=== PATIENT | male | born 1950 | race Caucasian/White ===

== ENCOUNTER 2018-09-06 13:54 | Emergency (ER) | payer MEDICARE, BC ==
[~2018-09-06] VITALS: Ht 172.7 cm; Wt 80.3 kg
[2018-09-06] MEDS ORDERED: ATENOLOL 50MG T50 M1 PO (14:12)
[2018-09-06] MEDS ORDERED: LASIX 20 MG TAB20 MG PO (14:13)
[2018-09-06 15:17] LABS: ABSOLUTE BASOPHILS 0.1 thou/uL (0.0-0.2); ABSOLUTE EOSINOPHILS 0.1 thou/uL (0.0-0.7); ABSOLUTE LYMPHOCYTES 2.1 thou/uL (0.8-5.3); ABSOLUTE MONOCYTES 0.9 thou/uL (0.0-1.2); ABSOLUTE NEUTROPHILS 7.1 thou/uL (1.6-8.1); BASOPHILS 0.7 %; HEMATOCRIT 47.2 % (42.0-52.0); HEMOGLOBIN 16.6 gm/dL (14.0-18.0); LYMPHOCYTES 20.2 %; MCHC 35.2 g/dL (28.0-37.0); MCV 90.9 fL (80.0-100.0); MONOCYTES 8.9 %; MPV 8.7 fl. (7.2-11.1); NUCLEATED RBCS 0 /100WBC; PLATELET COUNT* 182 thou/uL (150-400); POLYS 69.2 %; RBC 5.19 mil/uL (4.50-6.00); RDW-CV 12.8 % (10.5-14.5); WBC 10.2 thou/uL (4.0-11.0)
[2018-09-06 15:24] LABS: ANION GAP 5 mmol/L (7-16); BUN 18 mg/dL (7-18); CALCIUM 9.3 mg/dL (8.5-10.1); CHLORIDE 102 mmol/L (98-107); CO2 33 mmol/L (21-32); CREATININE 1.5 mg/dL (0.6-1.3); GLUCOSE 110 mg/dL (70-99); POTASSIUM 4.1 mmol/L (3.5-5.1); SODIUM 140 mmol/L (136-145)
[2018-09-06 15:34] LABS: ALBUMIN 3.9 g/dL (3.4-5.0); ALKALINE PHOSPHATASE 98 U/L (46-116); SGOT 20 U/L (15-37); SGPT 40 U/L (30-65); TOTAL BILIRUBIN 1.8 mg/dL (<0.1-1.0); TOTAL PROTEIN 7.4 g/dL (6.4-8.2); TROPONIN-I LEVEL <0.06 ng/mL (<0.06)
[2018-09-06] MEDS ORDERED: METFORMIN HCL500 MG PO (16:20)
[2018-09-06] MEDS ORDERED: LOPRESSOR50 PO (16:20)
[2018-09-06] MEDS ORDERED: LIPITOR10 MG PO (16:20)
[2018-09-06] MEDS ORDERED: COZAAR 50 MG TA50 M1 PO (16:20)
[2018-09-06 16:50] VITALS: BP 156/80
--- NOTE | 2018-09-06 17:18 | EKG ---
[place] [address] ELECTROCARDIOGRAM REPORT Name: JENNIFER BARBOZA [id number] Admission: 09/06/18 Attend Phys: Discharge: 09/06/18 Date of : 50 Report #: [id number] THIS REPORT FOR: //name// [facility] ED Test Date: 2018-09-06 Test Time: 15:16:10 Pat Name: JENNIFER BARBOZA Department: Room: Gender: M [employer]: JESSICA : 1950 Requested By: Carie Awad Order Number: [id number] MD: Chris Blevins Measurements Intervals [place] Rate: 68 P: 28 [place]: 166 QRS: 22 QRSD: 76 T: 14 QT: 395 QTc: 421 Interpretive Statements Sinus rhythm Consider left ventricular hypertrophy Anterior ST elevation, probably due to LVH No previous ECG available for comparison Electronically Signed On 09-06-2018 17:18:41 CDT by Chris Blevins [email or web address] <ELECTRONICALLY SIGNED> By: Chris Blevins MD, [facility] 09/06/18 1718 1516 1516 Chris Blevins MD, FACC /EPI
== END 2018-09-06 16:51 | disposition home or self-care (01) ==
LOC: M.ERS 13:54
PROVIDERS: Nurse Practitioner Family
DX: I10 Essential (primary) hypertension (principal)

== ENCOUNTER → 2018-09-11 | Outpatient (CLI) | payer MEDICARE, BC ==
[~2018-09-11] MED LIST: ATENOLOL 50MG T50 M1 PO; COZAAR 50 MG TA50 M1 PO; LASIX 20 MG TAB20 MG PO; LIPITOR10 MG PO; LOPRESSOR50 PO; METFORMIN HCL500 MG PO
== END ==
LOC: M.ULTRA 15:30
DX: I10 Essential (primary) hypertension (principal)